=== PATIENT | male | born 2000 | race Two or more races ===

== ENCOUNTER 2020-12-20 09:00 | Emergency (ER) | payer OTHER ==
[~2020-12-20] VITALS: Ht 175.3 cm; Wt 83.9 kg
[2020-12-20] MEDS ORDERED: TRIA15CR3 TOP (09:54)
[2020-12-20] MEDS ORDERED: HYDPAM25 PO (09:54)
== END 2020-12-20 10:47 | disposition home or self-care (01) ==
LOC: ER 09:00
DX: L23.7 Allergic contact dermatitis due to plants, except food (principal)
CPT/HCPCS: 96372; 99282-25; J1100